=== PATIENT | female | born 1945 | race Caucasian/White ===

== ENCOUNTER 2018-03-08 09:15 | Emergency (ER) | payer MEDICARE, BC ==
--- NOTE | 2018-03-08 09:33 | EDM.PDOC ---
ED HPI GENERAL MEDICAL PROBLEM - General Stated Complaint: BACK PAIN, SPASMS Time Seen by Provider: 03/08/18 09:15 Source of Information: Reports: Patient, Family (SO) History Limitations: Reports: No Limitations, Physical Impairment - History of Present Illness INITIAL COMMENTS - FREE TEXT/NARRATIVE: 72 y.o.w.f came to the ed with her SO due to pain at her righyt mid upper pain to pressure and movement. Pt denied trauma but she has back issues for some time. Pt was seen by a back specialist in the past who applied Cortison injections. Pt feels most pain when she lays on her back. No N/V/D or any other acute medical issues. BP 147/67 Pulse 78 RR 18 Pulse ox 97% on RA Temp 36.6 Onset Date: 03/05/18 Onset Time: 20:00 Duration: Day(s):, Intermittent Location: Reports: Back Quality: Reports: Ache, Burning, Dull, Same as Previous Episode Severity: Moderate Improves with: Reports: Rest Worsens with: Reports: Movement Context: Reports: Other (DDD) Associated Symptoms: Reports: No Other Symptoms Right Middle Back Pain Score (Numeric/FACES): 8 - Related Data Allergies Allergy/AdvReac Type Severity Reaction Status Date / Time codeine Allergy Cannot Verified 03/08/18 09:47 Remember Home Meds: Home Meds Acetaminophen [Tylenol Extra Strength] 1,000 mg PO BID 03/08/18 [History] Acetaminophen/HYDROcodone [[place] 325-5 MG] 1 tab PO Q4H PRN #5 tab 03/08/18 [Rx] Arginine [l-Arginine] 500 mg PO DAILY 03/08/18 [History] Aspirin 81 mg PO DAILY 03/08/18 [History] Labetalol HCl [Labetalol] 200 mg PO DAILY 03/08/18 [History] Labetalol HCl [Labetalol] 400 mg PO BEDTIME 03/08/18 [History] Latanoprost 1 drop EYEBOTH BEDTIME 03/08/18 [History] Losartan/Hydrochlorothiazide [Losartan-HCTZ 100-12.5 MG] 1 tab PO DAILY [History] Lutein 20 mg PO DAILY 03/08/18 [History] Multivitamin [Multivitamins] 1 tab PO DAILY 03/08/18 [History] PARoxetine [Paxil] 10 mg PO DAILY 03/08/18 [History] Zolpidem Tartrate [Ambien] 10 mg PO BEDTIME 03/08/18 [History] atorvaSTATin [Lipitor] 40 mg PO BEDTIME 03/08/18 [History] ED ROS GENERAL - Review of Systems Review Of Systems: See Below Constitutional: Reports: No Symptoms HEENT: Reports: No Symptoms Respiratory: Reports: No Symptoms Cardiovascular: Reports: No Symptoms Endocrine: Reports: No Symptoms GI/Abdominal: Reports: No Symptoms : Reports: No Symptoms Musculoskeletal: Reports: Back Pain Skin: Reports: No Symptoms Neurological: Reports: No Symptoms Psychiatric: Reports: No Symptoms Hematologic/Lymphatic: Reports: No Symptoms Immunologic: Reports: No Symptoms ED EXAM, UPPER BACK/NECK PAIN - Physical Exam Exam: See Below Exam Limited By: No Limitations General Appearance: Alert, WD/WN, Mild Distress, Obese Eye Exam: Bilateral Eye: Normal Inspection Ears Exam: Normal External Exam, Normal Canal, Hearing Grossly Normal Nose Exam: Normal Inspection, Normal Mucousa, No Blood Throat/Mouth Exam: Normal Inspection, Normal Lips, Normal Teeth, Normal Gums, Normal Voice, No Airway Compromise Head Exam: Atraumatic, Normocephalic Neck Exam: Non-Tender, Full Range of Motion, Normal Alignment, Normal Inspection Cardiovascular/Respiratory: Regular Rate, Rhythm, No M/R/G, Normal Peripheral Pulses, No JVD, Normal Breath Sounds, No Respiratory Distress GI/Abdominal: Normal Bowel Sounds, Soft, Non-Tender, No Organomegaly, No Distention, No Abnormal Bruit, No Mass, Pelvis Stable (Female) Exam: Deferred Rectal (Female) Exam: Deferred Back Exam: Normal Inspection, Decreased Range of Motion, Muscle Spasm, Paraspinal Tenderness (right mid upper back) Extremities: Normal Inspection, Normal Range of Motion, Non-Tender, No Pedal Edema, Normal Capillary Refill 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 Pt denied trauma but she has back issues for some time. Pt was seen by a back specialist in the past who applied Cortison injections. Pt feels most pain when she lays on her back. No N/V/D or any other acute medical issues. BP 147/67 Pulse 78 RR 18 Pulse ox 97% on RA Temp 36.6 PE: 72 y.o.w.f came to [facility] ed with right mid upper back pain. Imaging: Thoracolumbar spine: DDDm NAD Impression: Mid back pain, chronic back pain Tx: Motrin, ICE Reexam: Improved Plan: D/C with instructions Last Recorded V/S: Last Vital Signs Temp 36.6 C 03/08/18 09:15 Pulse 65 03/08/18 11:38 Resp 18 03/08/18 11:38 BP 142/95 H 03/08/18 11:38 Pulse Ox 96 03/08/18 11:38 - Orders/Labs/Meds Orders: Active Orders 24 hr Category Date Time Status Cooling Warming Measures [RC] ASDIRECTED Care 03/08/18 09:35 Active Thoracolumbar 2V [CR] Stat Exams 03/08/18 09:33 Taken UA W/MICROSCOPIC [URIN] Stat Lab 03/08/18 10:03 Ordered Ice Bag [Ice Therapy] [OM.PC] Routine Oth 03/08/18 09:35 Ordered Labs: Laboratory Tests 03/08/18 Range/Units 10:03 Urine Color Yellow (YELLOW) Urine Appearance Clear (CLEAR) Urine pH 6.0 (5.0-6.5) Ur Specific [place] 1.020 (1.010-1.025) Urine Protein Negative (NEGATIVE) mg/dL Urine Glucose (UA) Normal (NEGATIVE) mg/dL Urine Ketones Negative (NEGATIVE) mg/dL Urine Occult Blood Negative (NEGATIVE) Urine Nitrite Negative (NEGATIVE) Urine Bilirubin Negative (NEGATIVE) Urine Urobilinogen Normal (NEGATIVE) mg/dL Ur Leukocyte Esterase Negative (NEGATIVE) Urine RBC 0-5 (0) Urine WBC 0-5 (0) Ur Squamous Epith Cells Few H (NS,R,O) Urine Bacteria Rare H (NS) Urine Mucus Moderate H (NS) Meds: Medications Discontinued Medications Generic Name Dose Route Start Last Admin Trade Name Freq PRN Reason Stop Dose Admin Ketorolac Tromethamine 30 mg 03/08/18 09:35 03/08/18 09:54 Toradol IM 03/08/18 09:36 30 mg ONETIME ONE Administration Orphenadrine Citrate 60 mg 03/08/18 09:45 03/08/18 09:53 Norflex IM 60 mg Q12H CHRISTIANE Administration Departure - Departure Time of Disposition: 11:37 Disposition: Home, Self-Care 01 Condition: Good Clinical Impression: Back pain of thoracolumbar region, DDD (degenerative disc disease), thoracolumbar - Discharge Information Prescriptions: Acetaminophen/HYDROcodone [[place] 325-5 MG] 1 tab PO Q4H PRN #5 tab PRN Reason: severe back pain Instructions: Acetaminophen; Hydrocodone tablets or capsules, Ketorolac injection, Back Pain, Adult, Orphenadrine injection, Degenerative Disk Disease Referrals: PCP,Not In Area [Primary Care Provider] - Forms: ED Department Discharge Additional Instructions: Please apply ICE to lower back, please take motrin for pain, please take vicodin for severe pain only , F/U with your PMD or web communications specialist, Please come back to the ed if your symptoms get worse acutely - My Orders Last 24 Hours: My Active Orders 03/08/18 09:33 Thoracolumbar 2V [CR] Stat 03/08/18 09:35 Cooling Warming Measures [RC] ASDIRECTED Ice Bag [Ice Therapy] [OM.PC] Routine 03/08/18 10:03 UA W/MICROSCOPIC [URIN] Stat - Assessment/Plan Last 24 Hours: My Active Orders 03/08/18 09:33 Thoracolumbar 2V [CR] Stat 03/08/18 09:35 Cooling Warming Measures [RC] ASDIRECTED Ice Bag [Ice Therapy] [OM.PC] Routine 03/08/18 10:03 UA W/MICROSCOPIC [URIN] Stat
[2018-03-08] MEDS ORDERED: Ketorolac 30 MG/ML SDV IM ONE (09:35)
--- NOTE | 2018-03-10 13:36 | CR ---
INDICATION: Back pain. THORACOLUMBAR SPINE: Four images of the thoracolumbar spine were obtained and revealed grade 1 anterolisthesis at L4-5. Vertebral body and disk heights were fairly well-maintained, except for perhaps a slight loss of disk space at L4-5. A mild dextroconcave scoliosis at the thoracolumbar spine is suggested. Mild hypertrophic degenerative changes are noted off vertebral bodies anteriorly at the thoracolumbar spine in general. Overall bone density appeared to be normal to slightly diminished. No evidence of a fusion is identified. A definite acute fracture or dislocation was not identified. If an occult bony abnormality is suspected clinically, nuclear bone imaging or possibly MRI may be helpful for further evaluation. IMPRESSION: 1. Degenerative changes with hypertrophic lipping anteriorly off thoracolumbar vertebral bodies. 2. Mild scoliosis. 3. Question minimal osteoporosis. 4. Degenerative disk disease with anterolisthesis, grade 1, at L4-5. MTDD
== END 2018-03-08 11:50 | disposition home or self-care (01) ==
LOC: FB.ED 09:15
DX: M51.35 Other intervertebral disc degeneration, thoracolumbar region (principal); Z88.5 Allergy status to narcotic agent; Z79.899 Other long term (current) drug therapy
CPT/HCPCS: 72080; 81001; 96372; 99283; J1885; J2360